=== PATIENT | female | born 1985 | race Caucasian/White ===

== ENCOUNTER 2016-09-21 18:13 | Emergency (ER) | payer OTHER, MEDICAID ==
--- NOTE | 2016-09-21 18:36 | CPEKG ---
Heart Rate: 86 RR Interval: 698 P-R Interval: 140 QRSD Interval: 100 QT Interval: 372 QTC Interval: 445 P Saxon: 67 QRS Saxon: 79 T Wave Saxon: 35 EKG Severity - BORDERLINE ECG - EKG Impression: SINUS RHYTHM EKG Impression: INFERIOR Q WAVES, PROBABLY NORMAL VARIATION Electronically Signed By: Neal Epstein 21-Sep-2016 21:47:23
--- NOTE | 2016-09-21 18:39 | EDPHY ---
H & P Time Seen by Provider: 09/21/16 18:32 HPI/ROS: Chief complaint. Palpitations HPI. Patient is a 31-year-old female with palpitations over the past month gradually worsening. She notes that her heart beats quickly over 80 16 seconds and then seems to stop. It repeats at some point later. It has been worse the last few days. It occurs at rest as well as with exertion. She is uncomfortable from the sense of arrhythmia but otherwise no pressure or pain in her chest. No shortness of breath, fever, cough. No similar symptoms previously. No unusual leg pain or swelling. ROS Constitutional. no fever/chills, no weakness Eyes. no problems with vision ENT. no sore throat, no nasal drainage Cardiovascular. Palpitations Respiratory. no shortness of breath, no cough Abdominal. no abdominal pain, no nausea/vomiting, no diarrhea . no problems urinating MS. no calf pain/swelling, no neck/back pain, no joint pain Skin. no rash Lymph. no swollen glands Neuro. no headache, no dizziness, no difficulty walking or with speech Past Medical/Surgical History: Past medical history significant for asthma and ovarian cysts Social History: , nonsmoker, no alcohol Smoking Status: Never smoked Physical Exam: General Appearance: Alert pleasant well-developed female mild distress vital signs are stable. Eyes: Pupils equal and round no pallor or injection. ENT, Mouth: Mucous membranes are moist. Respiratory: There are no retractions, lungs are clear to auscultation. Cardiovascular: Regular rate and rhythm. Gastrointestinal: Abdomen is soft and nontender, no masses, bowel sounds normal. Neurological: Awake and alert, sensory and motor exams grossly normal. Skin: Warm and dry, no rashes. Musculoskeletal: Neck is supple nontender. Extremities symmetrical, full range of motion. Psychiatric: Patient is oriented X 3, there is no agitation. Constitutional: Initial Vital Signs Temperature (C) 36.4 C 09/21/16 18:20 Heart Rate 90 09/21/16 18:20 Respiratory Rate 16 09/21/16 18:20 Blood Pressure 125/87 H 09/21/16 18:20 O2 Sat (%) 98 09/21/16 18:20 O2 Delivery Mode Room Air Allergies/Adverse Reactions: No Known Allergies Allergy (Verified 09/21/16 18:18) Home Medications: Medication Instructions Recorded Albuterol 09/21/16 Phentermine HCl 09/21/16 Medical Decision Making - Diagnostics EKG Interpretation: EKG interpreted by me shows normal sinus rhythm. There is normal interval and axis. QRS is normal there is no significant ST elevation or depression. There is no arrhythmia or ectopic beats. Rate is 86 Imaging: Chest x-ray interpreted by me is normal Procedures: IV normal saline, monitor ED Course/Re-evaluation: Patient's D-dimer is elevated. The patient, her , and I discussed laboratory evaluation recommendation for CT of her chest. She expresses understanding and agreement. CT is ordered On re-evaluation at 8:50 p.m. patient is stable. The patient, her , and I discussed imaging and lab results, we discussed treatment plan including criteria for return and importance of follow-up and further evaluation. They expressed understanding and agreement Differential Diagnosis: Patient has been having palpitations. I have considered acute coronary syndrome , hyperthyroidism, pulmonary embolus, anxiety - Data Points Laboratory Results: Laboratory Results 09/21/16 18:45 09/21/16 18:45 09/21/16 09/21/16 09/21/16 18:45 18:45 18:45 WBC RBC Hgb Hct MCV MCH MCHC RDW Plt Count MPV Neut % (Auto) Lymph % (Auto) Bond % (Auto) Eos % (Auto) Baso % (Auto) Nucleat RBC Rel Count Absolute Neuts (auto) Absolute Lymphs (auto) Absolute Monos (auto) Absolute Eos (auto) Absolute Basos (auto) Absolute Nucleated RBC Immature Gran % Immature Gran # D-Dimer 0.52 ug/mLFEU H ug/mLFEU (0.00-0.50) Sodium 139 mEq/L mEq/L (134-144) Potassium 4.0 mEq/L mEq/L (3.5-5.2) Chloride 107 mEq/L mEq/L (97-110) Carbon Dioxide 22 mEq/l mEq/l (22-31) Anion Gap 10 mEq/L mEq/L (8-16) BUN 8 mg/dL mg/dL (7-23) Creatinine 0.7 mg/dL mg/dL (0.6-1.0) Estimated GFR > 60 Glucose 89 mg/dL mg/dL (70-100) Calcium 9.7 mg/dL mg/dL (8.5-10.4) Troponin I < 0.012 ng/mL ng/mL (0-0.034) TSH 2.080 uIU/mL uIU/mL (0.465-4.680) Beta HCG, Qual NEGATIVE 09/21/16 18:45 WBC 13.65 10^3/uL H 10^3/uL (3.80-9.50) RBC 4.82 10^6/uL 10^6/uL (4.18-5.33) Hgb 13.9 g/dL g/dL (12.6-16.3) Hct 42.0 % % (38.0-47.0) MCV 87.1 fL fL (81.5-99.8) MCH 28.8 pg pg (27.9-34.1) MCHC 33.1 g/dL g/dL (32.4-36.7) RDW 13.3 % % (11.5-15.2) Plt Count 264 10^3/uL 10^3/uL (150-400) MPV 11.4 fL fL (8.7-11.7) Neut % (Auto) 72.9 % % (39.3-74.2) Lymph % (Auto) 18.4 % % (15.0-45.0) Bond % (Auto) 5.6 % % (4.5-13.0) Eos % (Auto) 2.4 % % (0.6-7.6) Baso % (Auto) 0.4 % % (0.3-1.7) Nucleat RBC Rel Count 0.0 % % (0.0-0.2) Absolute Neuts (auto) 9.96 10^3/uL H 10^3/uL (1.70-6.50) Absolute Lymphs (auto) 2.51 10^3/uL 10^3/uL (1.00-3.00) Absolute Monos (auto) 0.76 10^3/uL 10^3/uL (0.30-0.80) Absolute Eos (auto) 0.33 10^3/uL 10^3/uL (0.03-0.40) Absolute Basos (auto) 0.05 10^3/uL 10^3/uL (0.02-0.10) Absolute Nucleated RBC 0.00 10^3/uL 10^3/uL (0-0.01) Immature Gran % 0.3 % % (0.0-1.1) Immature Gran # 0.04 10^3/uL 10^3/uL (0.00-0.10) D-Dimer Sodium Potassium Chloride Carbon Dioxide Anion Gap BUN Creatinine Estimated GFR Glucose Calcium Troponin I TSH Beta HCG, Qual Departure - Departure Disposition: Home, Routine, Self-Care Clinical Impression: Palpitations Condition: Good Instructions: Palpitations (ED) Additional Instructions: Return for worsening symptoms including chest discomfort or trouble breathing. On Friday morning call Cardiology to arrange further evaluation. Return sooner over the weekend for worsening symptoms Referrals: NONE *PRIMARY CARE P,. [Primary Care Provider] - As per Instructions Aneesh Viveros MD [Medical Doctor] - As per Instructions
[2016-09-21 18:53] LABS: % IMMATURE GRANULYOCYTES 0.3 % (0.0-1.1); ABSOLUTE IMMATURE GRANULOCYTES 0.04 10^3/uL (0.00-0.10); ADD DIFF? NO; ADD MORPH? NO; ADD SCAN? NO; ATYPICAL LYMPHOCYTE FLAG 0 (0-99); FRAGMENT RBC FLAG 0 (0-99); HEMOGLOBIN 13.9 g/dL (12.6-16.3); LEFT SHIFT FLG 0 (0-99); LIPEMIA HEMOLYSIS FLAG 80 (0-99); MEAN CELL HEMOGLOBIN 28.8 pg (27.9-34.1); MEAN CELL HEMOGLOBIN CONCENTR. 33.1 g/dL (32.4-36.7); MEAN CELL VOLUME 87.1 fL (81.5-99.8); MEAN PLATELET VOLUME 11.4 fL (8.7-11.7); PLATELET CLUMPS FLAG 0 (0-99); PLATELET COUNT 264 10^3/uL (150-400); RED BLOOD CELL COUNT 4.82 10^6/uL (4.18-5.33); RED CELL DISTRIBUTION WIDTH 13.3 % (11.5-15.2)
[2016-09-21 19:06] LABS: ANION GAP 10 mEq/L (8-16); CALCIUM 9.7 mg/dL (8.5-10.4); CARBON DIOXIDE 22 mEq/l (22-31); CHLORIDE 107 mEq/L (97-110); CREATININE 0.7 mg/dL (0.6-1.0); GLOMERULAR FILTRATION RATE > 60; GLUCOSE 89 mg/dL (70-100); SODIUM 139 mEq/L (134-144)
[2016-09-21 19:18] LABS: TROPONIN I < 0.012 ng/mL (0-0.034)
[2016-09-21] MEDS ORDERED: NS 1,000 ML IV ONE (19:47)
[2016-09-21] MEDS ORDERED: IOPAMIDOL (ISOVUE-370) 150 ML BTL IV ONE (20:01)
[2016-09-21 21:31] VITALS: BP 115/84; PULSE 89; RESP 20; TEMP 98.1; O2SAT 97
== END 2016-09-21 21:31 | disposition home or self-care (01) ==
DX: R00.2 Palpitations (principal); J45.909 Unspecified asthma, uncomplicated
CPT/HCPCS: Q9967

== ENCOUNTER 2018-11-03 19:19 | Emergency (ER) | payer MEDICAID, OTHER ==
--- NOTE | 2018-11-03 19:44 | EDPHY ---
H & P Stated Complaint: hx PAC and mid chest tightness and feels PAC and diarrhea Time Seen by Provider: 11/03/18 19:43 HPI/ROS: CHIEF COMPLAINT: Chest pressure HISTORY OF PRESENT ILLNESS: The patient presents the ED with a 1 day history of chest pressure. She reports that she is under fair amount of stress secondary to the recent purchase of a house and plans to travel with her family. She described a sensation earlier today of chest discomfort. She had mild shortness of breath. Her symptoms have improved. The patient has no history of exertional chest pain or shortness of breath. The patient does have a history of PACs which typically manifest as a skipped beat. The patient denies any fever, cough or congestion. She denies asymmetric calf pain or swelling. She denies pleuritic chest pain. The patient reports that her father does have a history of coronary artery disease. She does believe that he had a stent sometime in his mid 50s. REVIEW OF SYSTEMS: A comprehensive 10 point review of systems is otherwise negative aside from elements mentioned in the history of present illness. Source: Patient - Personal History LMP (Females 10-55): 22-28 Days Ago Current Tetanus/Diphtheria Vaccine: Yes Current Tetanus Diphtheria and Acellular Pertussis (TDAP): Yes - Medical/Surgical History Hx Asthma: Yes Hx Chronic Respiratory Disease: No Hx Diabetes: No Hx Cardiac Disease: No Hx Renal Disease: No Hx Cirrhosis: No Hx Alcoholism: No Hx HIV/AIDS: No Hx Splenectomy or Spleen Trauma: No Other PMH: Ovarian cyst, childhood asthma, PAC - Social History Smoking Status: Never smoked - Physical Exam Exam: General Appearance: Alert, no distress Eyes: Pupils equal and round no pallor or injection ENT, Mouth: Mucous membranes moist Respiratory: There are no retractions, lungs are clear to auscultation Cardiovascular: Regular rate and rhythm Gastrointestinal: Abdomen is soft and nontender, no masses, bowel sounds normal Neurological: A&O, normal motor function, normal sensory exam, normal cranial nerves Skin: Warm and dry, no rashes Musculoskeletal: Neck is supple nontender Extremities: symmetrical, full range of motion Constitutional: Initial Vital Signs Temperature (C) 37.4 C 11/03/18 19:21 Heart Rate 78 11/03/18 19:21 Respiratory Rate 16 11/03/18 19:21 Blood Pressure 145/87 H 11/03/18 19:21 O2 Sat (%) 97 11/03/18 19:21 O2 Delivery Mode Room Air Allergies/Adverse Reactions: No Known Allergies Allergy (Verified 11/03/18 19:24) Home Medications: Medication Instructions Recorded Propranolol HCl 11/03/18 Medical Decision Making - Diagnostics EKG Interpretation: EKG: Complete interpretation has been separately recorded in the [facility] archive. Summary impression: Sinus rhythm, rate 69, no arrhythmia or ischemic changes noted. ED Course/Re-evaluation: Patient presents the ED with atypical chest pain for the past day in the setting of sure amount of stress. The patient's EKG demonstrates no evidence of ischemia. The patient's troponin is normal. The patient has a heart score of 1-2. The patient is comfortable being discharged home and following up with Cardiology for consideration of a treadmill stress test. She does understand return to the ED for markedly worsening symptoms or other concerns. Differential Diagnosis: Differential diagnosis considered includes acute coronary syndrome, pericarditis , esophageal spasm, situational anxiety - Data Points Laboratory Results: 11/03/18 19:59 POC Troponin I 0.00 ng/mL ng/mL (0.00-0.08) Point of Care Test Results: Chemistry 11/03/18 19:59 POC Troponin I 0.00 ng/mL ng/mL (0.00-0.08) Departure - Departure Disposition: Home, Routine, Self-Care Clinical Impression: Chest pain Condition: Good Instructions: Chest Pain (ED) Additional Instructions: 1. Based upon the testing done in the Emergency Department today we see no evidence of a heart attack. 2. We are unable to fully exclude coronary artery disease based upon the testing available in the Emergency Department. 3. For this reason, we would like you to be seen by cardiology for consideration of additional testing within the next 3 days. 4. Please contact the parts technician you have been referred to schedule this appointment as soon as possible. Their offices are typically open from 8:30am- 5pm M-F. 5. Please return to the Emergency Department immediately for any recurrent chest pain, difficulty breathing or other concerns. Referrals: Jermaine Brown MD [Medical Doctor] - As per Instructions
--- NOTE | 2018-11-03 19:45 | CPEKG ---
Test Reason : OPEN Blood Pressure : / mmHG Vent. Rate : 069 BPM Atrial Rate : 070 BPM P-R Int : 151 ms QRS Dur : 105 ms QT Int : 399 ms P-R-T Axes : 046 068 027 degrees QTc Int : 428 ms Sinus rhythm Confirmed by Kiel Schneider ([id number]) on 11/03/2018 7:45:07 PM Referred By: PHYSICIAN ED Confirmed By:Kiel Schneider
[2018-11-03 20:43] VITALS: BP 122/70
== END 2018-11-03 20:42 | disposition home or self-care (01) ==
DX: R07.89 Other chest pain (principal); R06.02 Shortness of breath
CPT/HCPCS: 84484-ER